=== PATIENT | male | born 1985 | race Caucasian/White ===

== ENCOUNTER 2018-09-05 13:59 | Inpatient (IN) ==
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
[2018-09-05] MEDS ORDERED: Piperacil/Tazo 4.5 GM Premix 4.5 GM/100 ML BAG IV.SIG STA (15:38)
[2018-09-05] MEDS ORDERED: Azithromycin Inj 500 MG in Sodium Chlor 0.9% Inj 250 ML IV.SIG STA (15:38)
[2018-09-05 15:39] LABS: Baso % (Auto) 0.3 % (0.0-2.0); Eos # (Auto) 0.2 th/mm3 (0.0-0.4); Eos % (Auto) 1.6 % (0.0-4.0); Lymph # (Auto) 1.1 th/mm3 (1.0-4.8); Lymph % (Auto) 7.3 % (9.0-44.0); Mean Corpuscular HGB Conc 33.2 % (32.0-36.0); Mean Corpuscular Hemoglobin 30.2 pg (27.0-34.0); Mean Corpuscular Volume 90.9 fL (80.0-100.0); Mean Platelet Volume 7.1 fL (7.0-11.0); Mono # (Auto) 1.4 th/mm3 (0.0-0.9); Mono % (Auto) 9.1 % (0.0-8.0); Neut # (Auto) 12.7 th/mm3 (1.8-7.7); Neut % (Auto) 81.7 % (16.0-70.0); Platelet Count 550 th/mm3 (150-450); Red Cell Distribution Width 15.2 % (11.6-17.2); White Blood Count 15.6 th/mm3 (4.0-11.0)
[2018-09-05 15:44] LABS: Activated Partial Thrombo Time 34.8 sec (23.4-31.7); INR 1.1 Ratio
[2018-09-05 15:49] LABS: Alanine Aminotransferase 29 U/L (12-78); Albumin 2.3 g/dL (3.4-5.0); Anion Gap 7 meq/L (5-15); Aspartate Aminotransferase 23 U/L (15-37); Blood Urea Nitrogen 11 mg/dL (7-18); Calcium 8.2 mg/dL (8.5-10.1); Chloride 97 meq/L (98-107); Glomerular Filtration Rate Greater Than 89 mL/min (>89); Glucose,Random 99 mg/dL (74-106); Potassium 4.2 meq/L (3.5-5.1); Sodium 133 meq/L (136-145)
[2018-09-05 15:53] LABS: Alkaline Phosphatase 94 U/L (45-117); Total Protein 7.5 g/dL (6.4-8.2)
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
[2018-09-05] MEDS ORDERED: Acetaminophen 325 MG Tablet PO ONE (18:19)
[2018-09-05] MEDS ORDERED: Vancomycin Inj 1,000 MG in Sodium Chlor 0.9% Inj 250 ML IV.SIG ONE (19:12)
[2018-09-05] MEDS ORDERED: Vancomycin Consult Pharmacy OTHER PRN (19:31)
[2018-09-05] MEDS ORDERED: Bisacodyl 10 MG Supp RECTAL PRN (19:31)
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
[2018-09-05] MEDS: Sod Chloride 0.9% Inj 1,000 ML IV.CONT SCH (21:02)
[2018-09-05] MEDS: Senna/Docusate Sodium 8.6/50 MG Tablet PO SCH (21:02)
[2018-09-05] MEDS: Budesonide-Formoterol 160/4.5 MCG 6 GM Inhaler INH SCH (21:03)
[2018-09-05] MEDS: guaiFENesin/Dextromethorphan 200 MG/20 MG 10 ML UDC PO PRN (23:35)
[2018-09-06] MEDS: Vancomycin Inj 1,250 MG in Sodium Chlor 0.9% Inj 250 ML IV.SIG SCH ×3 (01:52→19:10)
[2018-09-06] MEDS: Acetaminophen 325 MG Tablet PO PRN ×2 (01:52→18:14)
[2018-09-06] MEDS: Sod Chloride 0.9% Inj 1,000 ML IV.CONT SCH (07:18)
[2018-09-06 08:03] LABS: Hematocrit 27.5 % (39.0-51.0); Hemoglobin 9.5 gm/dL (13.0-17.0); Mean Corpuscular HGB Conc 34.5 % (32.0-36.0); Mean Corpuscular Hemoglobin 30.5 pg (27.0-34.0); Mean Corpuscular Volume 88.5 fL (80.0-100.0); Mean Platelet Volume 7.6 fL (7.0-11.0); Platelet Count 508 th/mm3 (150-450); Red Cell Distribution Width 14.7 % (11.6-17.2); White Blood Count 14.7 th/mm3 (4.0-11.0)
[2018-09-06 08:30] LABS: Eosinophils 1 % (0-4); Lymphocytes 5 % (9-44); Monocytes 10 % (0-8)
[2018-09-06 08:31] LABS: Platelet Morphology Normal (Normal); RBC Morphology Normal (Normal)
[2018-09-06 08:34] LABS: Alanine Aminotransferase 32 U/L (12-78); Albumin 2.1 g/dL (3.4-5.0); Anion Gap 6 meq/L (5-15); Aspartate Aminotransferase 23 U/L (15-37); Blood Urea Nitrogen 9 mg/dL (7-18); Calcium 8.1 mg/dL (8.5-10.1); Carbon Dioxide 29.7 meq/L (21.0-32.0); Chloride 99 meq/L (98-107); Glomerular Filtration Rate Greater Than 89 mL/min (>89); Glucose,Random 97 mg/dL (74-106); Potassium 4.2 meq/L (3.5-5.1); Sodium 135 meq/L (136-145)
[2018-09-06 08:39] LABS: Alkaline Phosphatase 107 U/L (45-117); Total Protein 7.2 g/dL (6.4-8.2)
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
[2018-09-06] MEDS: Senna/Docusate Sodium 8.6/50 MG Tablet PO SCH ×2 (09:43→21:14)
[2018-09-06] MEDS: guaiFENesin/Dextromethorphan 200 MG/20 MG 10 ML UDC PO PRN ×3 (09:51→21:16)
[2018-09-06] MEDS: Budesonide-Formoterol 160/4.5 MCG 6 GM Inhaler INH SCH ×2 (09:52→21:15)
[2018-09-06] MEDS: Dextrose 5%/NaCl 0.9% Inj 1,000 ML IV.CONT SCH (10:54)
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
--- NOTE | 2018-09-06 13:05 | ECG ---
Date Performed: 09/05/2018 Time Performed: 14:59:11 PTAGE: 33 years EKG: Sinus rhythm NORMAL ECG NO PREVIOUS TRACING DOCTOR: Jose Maria Post Interpretating Date/Time 09/06/2018 13:03:09
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
[2018-09-06 17:08] LABS: Hematocrit 25.5 % (39.0-51.0); Hemoglobin 8.8 gm/dL (13.0-17.0)
[2018-09-06] MEDS ORDERED: Pharmacy Ordered Lab Info OTHER ONE (17:45)
[2018-09-06 22:00] LABS: Hematocrit 23.1 % (39.0-51.0); Hemoglobin 7.9 gm/dL (13.0-17.0)
[2018-09-07] MEDS: Dextrose 5%/NaCl 0.9% Inj 1,000 ML IV.CONT SCH ×3 (00:30→21:27)
[2018-09-07 00:33] LABS: Hematocrit 24.9 % (39.0-51.0); Hemoglobin 8.7 gm/dL (13.0-17.0)
[2018-09-07] MEDS: Vancomycin Inj 1,250 MG in Sodium Chlor 0.9% Inj 250 ML IV.SIG SCH ×3 (01:53→17:45)
[2018-09-07] MEDS: guaiFENesin/Dextromethorphan 200 MG/20 MG 10 ML UDC PO PRN ×4 (01:54→21:58)
[2018-09-07 05:53] LABS: Baso # (Auto) 0.1 th/mm3 (0.0-0.2); Baso % (Auto) 0.6 % (0.0-2.0); Eos # (Auto) 0.4 th/mm3 (0.0-0.4); Eos % (Auto) 4.2 % (0.0-4.0); Hematocrit 28.3 % (39.0-51.0); Hemoglobin 9.6 gm/dL (13.0-17.0); Lymph % (Auto) 10.2 % (9.0-44.0); Mean Corpuscular HGB Conc 33.8 % (32.0-36.0); Mean Corpuscular Hemoglobin 30.5 pg (27.0-34.0); Mean Corpuscular Volume 90.4 fL (80.0-100.0); Mean Platelet Volume 6.8 fL (7.0-11.0); Mono % (Auto) 10.1 % (0.0-8.0); Neut # (Auto) 7.5 th/mm3 (1.8-7.7); Neut % (Auto) 74.9 % (16.0-70.0); Platelet Count 537 th/mm3 (150-450); Red Blood Count 3.13 mil/mm3 (4.50-5.90); Red Cell Distribution Width 14.9 % (11.6-17.2)
[2018-09-07 06:19] LABS: Anion Gap 6 meq/L (5-15); Blood Urea Nitrogen 10 mg/dL (7-18); Calcium 8.4 mg/dL (8.5-10.1); Carbon Dioxide 29.1 meq/L (21.0-32.0); Chloride 101 meq/L (98-107); Glomerular Filtration Rate Greater Than 89 mL/min (>89); Glucose,Random 104 mg/dL (74-106); Potassium 4.3 meq/L (3.5-5.1); Sodium 136 meq/L (136-145)
[2018-09-07] MEDS: Senna/Docusate Sodium 8.6/50 MG Tablet PO SCH ×2 (08:49→21:26)
[2018-09-07] MEDS: Budesonide-Formoterol 160/4.5 MCG 6 GM Inhaler INH SCH ×2 (08:50→21:27)
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
[2018-09-08] MEDS: Vancomycin Inj 1,250 MG in Sodium Chlor 0.9% Inj 250 ML IV.SIG SCH ×3 (01:55→17:13)
[2018-09-08] MEDS: guaiFENesin/Dextromethorphan 200 MG/20 MG 10 ML UDC PO PRN ×3 (02:11→20:20)
[2018-09-08] MEDS ORDERED: Lidocaine PF 1% Inj 5 ML Syringe OTHER ONE (08:20)
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
[2018-09-08] MEDS: Senna/Docusate Sodium 8.6/50 MG Tablet PO SCH ×2 (09:01→21:00)
[2018-09-08] MEDS: Budesonide-Formoterol 160/4.5 MCG 6 GM Inhaler INH SCH ×2 (09:01→21:00)
[2018-09-08] MEDS ORDERED: Sugammadex Inj 200 MG/2 ML Vial IV.PUSH ONE (09:19)
[2018-09-08] MEDS ORDERED: Pharmacy Ordered Lab Info OTHER ONE (09:45)
--- NOTE | 2018-09-08 09:48 | MP ---
cc: Papa Apodaca MD DATE OF OPERATION: 09/08/2018 PROCEDURE: Bronchoscopy. PREOPERATIVE DIAGNOSIS: Left lung infiltrate. POSTOPERATIVE DIAGNOSIS: Thick mucus plugs removed. DESCRIPTION OF PROCEDURE: Informed consent was obtained from the patient. Procedure and the complications including complication of anesthesia; pneumothorax requiring chest tube; bleeding complication; injury to the blood vessel, lungs, nose; arrhythmia; hypoxia; and need for ventilator was explained and he agreed for the procedure. Next, the patient was brought to the endoscopy suite, surrendered under general anesthesia, and an endotracheal tube was placed by anesthesiologist. Bronchoscope was done through the endotracheal tube. Main ji is sharp. Bronchoscope was advanced to the right lung. Right upper, middle, and lower lobe were visualized. Small amount of mucus was suctioned. No endobronchial lesion was seen. The bronchoscope was directed to the left lung. Left upper lingular and lower lobes were visualized. Thick mucus plugs were suctioned from the left lower lobe. After suctioning mucus plugs, all subsegments were patent. Bronchial washing from the left lung was sent for routine culture, AFB, fungal culture, and cytology. He tolerated the procedure well. Postprocedure chest x-ray ordered to rule out pneumothorax. MD SHADY Jose/britni , 08:47 AM , 08:52 AM
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
[2018-09-08] MEDS: Dextrose 5%/NaCl 0.9% Inj 1,000 ML IV.CONT SCH ×2 (11:45→21:01)
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
--- NOTE | 2018-09-08 13:33 | ECG ---
Date Performed: 09/08/2018 Time Performed: 05:29:54 PTAGE: 33 years EKG: Sinus rhythm . Normal ECG No significant change from prior electrocardiogram. PREVIOUS TRACING : 09/05/2018 14.59 DOCTOR: Neno Rodriguez Interpretating Date/Time 09/08/2018 13:32:00
[2018-09-08 19:15] LABS: TB1 Ag minus Nil Result -0.01 IU/mL
[2018-09-08] MEDS: Acetaminophen 325 MG Tablet PO PRN (20:20)
[2018-09-09] MEDS: guaiFENesin/Dextromethorphan 200 MG/20 MG 10 ML UDC PO PRN ×3 (00:47→22:51)
[2018-09-09] MEDS: Vancomycin Inj 1,250 MG in Sodium Chlor 0.9% Inj 250 ML IV.SIG SCH ×3 (02:23→19:42)
[2018-09-09 06:13] LABS: Hematocrit 27.4 % (39.0-51.0); Hemoglobin 9.4 gm/dL (13.0-17.0); Mean Corpuscular HGB Conc 34.3 % (32.0-36.0); Mean Corpuscular Hemoglobin 30.9 pg (27.0-34.0); Mean Corpuscular Volume 90.3 fL (80.0-100.0); Mean Platelet Volume 6.8 fL (7.0-11.0); Platelet Count 557 th/mm3 (150-450); Red Blood Count 3.04 mil/mm3 (4.50-5.90); Red Cell Distribution Width 14.9 % (11.6-17.2); White Blood Count 7.9 th/mm3 (4.0-11.0)
[2018-09-09 06:47] LABS: Anion Gap 5 meq/L (5-15); Blood Urea Nitrogen 9 mg/dL (7-18); Calcium 8.3 mg/dL (8.5-10.1); Carbon Dioxide 30.7 meq/L (21.0-32.0); Chloride 100 meq/L (98-107); Glomerular Filtration Rate Greater Than 89 mL/min (>89); Glucose,Random 116 mg/dL (74-106); Potassium 4.5 meq/L (3.5-5.1); Sodium 136 meq/L (136-145)
[2018-09-09] MEDS: Budesonide-Formoterol 160/4.5 MCG 6 GM Inhaler INH SCH ×2 (08:39→22:44)
[2018-09-09] MEDS: Senna/Docusate Sodium 8.6/50 MG Tablet PO SCH ×2 (08:39→22:43)
[2018-09-09] MEDS: Dextrose 5%/NaCl 0.9% Inj 1,000 ML IV.CONT SCH (08:40)
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
[2018-09-10] MEDS: Vancomycin Inj 1,250 MG in Sodium Chlor 0.9% Inj 250 ML IV.SIG SCH ×2 (02:12→10:34)
[2018-09-10] MEDS: guaiFENesin/Dextromethorphan 200 MG/20 MG 10 ML UDC PO PRN (04:24)
[2018-09-10] MEDS: Senna/Docusate Sodium 8.6/50 MG Tablet PO SCH ×2 (08:29→20:19)
[2018-09-10] MEDS: Budesonide-Formoterol 160/4.5 MCG 6 GM Inhaler INH SCH ×2 (08:31→23:46)
[2018-09-10] MEDS ORDERED: Pharmacy Ordered Lab Info OTHER ONE (09:45)
[2018-09-10 10:27] LABS: Hematocrit 29.9 % (39.0-51.0); Mean Corpuscular HGB Conc 33.6 % (32.0-36.0); Mean Corpuscular Hemoglobin 30.5 pg (27.0-34.0); Mean Corpuscular Volume 90.7 fL (80.0-100.0); Mean Platelet Volume 6.5 fL (7.0-11.0); Platelet Count 599 th/mm3 (150-450); Red Blood Count 3.29 mil/mm3 (4.50-5.90); White Blood Count 8.6 th/mm3 (4.0-11.0)
[2018-09-10 10:52] LABS: Anion Gap 5 meq/L (5-15); Blood Urea Nitrogen 9 mg/dL (7-18); Calcium 8.9 mg/dL (8.5-10.1); Carbon Dioxide 32.4 meq/L (21.0-32.0); Chloride 99 meq/L (98-107); Glomerular Filtration Rate Greater Than 89 mL/min (>89); Glucose,Random 96 mg/dL (74-106); Potassium 4.4 meq/L (3.5-5.1); Sodium 136 meq/L (136-145)
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
[2018-09-10] MEDS: Vancomycin Inj 1,500 MG in Sodium Chlor 0.9% Inj 500 ML IV.SIG SCH (17:53)
[2018-09-11] MEDS: Vancomycin Inj 1,500 MG in Sodium Chlor 0.9% Inj 500 ML IV.SIG SCH ×2 (05:39→10:58)
[2018-09-11] MEDS: Senna/Docusate Sodium 8.6/50 MG Tablet PO SCH (08:23)
[2018-09-11] MEDS: Budesonide-Formoterol 160/4.5 MCG 6 GM Inhaler INH SCH ×2 (10:57→21:24)
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
[2018-09-11] MEDS ORDERED: Vancomycin Consult Pharmacy OTHER PRN (18:36)
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
[2018-09-11] MEDS ORDERED: Vancomycin Inj 1,500 MG in Sodium Chlor 0.9% Inj 500 ML IV.SIG SCH (20:00)
[2018-09-11] MEDS: Linezolid 600 MG Tablet PO SCH (21:24)
[2018-09-12] MEDS ORDERED: Pharmacy Ordered Lab Info OTHER ONE ×2 (01:45→03:45)
[2018-09-12] MEDS: Senna/Docusate Sodium 8.6/50 MG Tablet PO SCH ×3 (07:07→21:59)
[2018-09-12] MEDS: Linezolid 600 MG Tablet PO SCH ×2 (09:58→21:57)
[2018-09-12] MEDS: Budesonide-Formoterol 160/4.5 MCG 6 GM Inhaler INH SCH ×2 (09:59→21:57)
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
[2018-09-12] MEDS: Vancomycin Inj 1,500 MG in Sodium Chlor 0.9% Inj 500 ML IV.SIG SCH (20:45)
[2018-09-13] MEDS: Budesonide-Formoterol 160/4.5 MCG 6 GM Inhaler INH SCH ×2 (09:35→21:13)
[2018-09-13] MEDS: Linezolid 600 MG Tablet PO SCH ×2 (09:35→21:12)
[2018-09-13] MEDS: Senna/Docusate Sodium 8.6/50 MG Tablet PO SCH ×2 (09:41→21:18)
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
[2018-09-14] MEDS: Linezolid 600 MG Tablet PO SCH ×2 (08:33→21:38)
[2018-09-14] MEDS: Senna/Docusate Sodium 8.6/50 MG Tablet PO SCH ×2 (08:33→21:38)
[2018-09-14] MEDS: Budesonide-Formoterol 160/4.5 MCG 6 GM Inhaler INH SCH ×2 (08:34→21:39)
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
[2018-09-15 07:08] LABS: Hematocrit 34.4 % (39.0-51.0); Hemoglobin 11.4 gm/dL (13.0-17.0); Mean Corpuscular HGB Conc 33.3 % (32.0-36.0); Mean Corpuscular Hemoglobin 29.8 pg (27.0-34.0); Mean Corpuscular Volume 89.7 fL (80.0-100.0); Mean Platelet Volume 6.7 fL (7.0-11.0); Platelet Count 555 th/mm3 (150-450); Red Blood Count 3.83 mil/mm3 (4.50-5.90); Red Cell Distribution Width 15.2 % (11.6-17.2); White Blood Count 11.6 th/mm3 (4.0-11.0)
[2018-09-15] MEDS: Senna/Docusate Sodium 8.6/50 MG Tablet PO SCH ×2 (09:34→21:14)
[2018-09-15] MEDS: Budesonide-Formoterol 160/4.5 MCG 6 GM Inhaler INH SCH ×2 (09:35→21:14)
[2018-09-15] MEDS: Linezolid 600 MG Tablet PO SCH ×2 (09:36→21:14)
--- NOTE | 2018-09-15 11:05 | P.PNADD ---
Addendum to Inpatient Note Additional information: Pt was eventually started on zyvox after phamacist OKed to start him p stopping flexeril w/o additional hold time Incresing hemoptysis -cont PO linezolid - monitor CBC BMP weekly Stop date will be determined by clinical and radiological resolution dw Dr Apodaca re hemoptysis, who recommends clinical monitoring at this point If hemoptysis wont improve over 1-2 days will get repeat CT wo c
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
[2018-09-16] MEDS: Senna/Docusate Sodium 8.6/50 MG Tablet PO SCH ×2 (09:54→21:49)
[2018-09-16] MEDS: Linezolid 600 MG Tablet PO SCH ×2 (09:54→21:49)
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
[2018-09-16] MEDS: Budesonide-Formoterol 160/4.5 MCG 6 GM Inhaler INH SCH ×2 (14:58→21:51)
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
[2018-09-17] MEDS: Senna/Docusate Sodium 8.6/50 MG Tablet PO SCH ×2 (09:09→21:57)
[2018-09-17] MEDS: Linezolid 600 MG Tablet PO SCH ×2 (09:09→21:58)
[2018-09-17] MEDS: Budesonide-Formoterol 160/4.5 MCG 6 GM Inhaler INH SCH ×2 (09:10→22:00)
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
[2018-09-18] MEDS: Linezolid 600 MG Tablet PO SCH ×2 (08:14→21:32)
[2018-09-18] MEDS: Senna/Docusate Sodium 8.6/50 MG Tablet PO SCH ×2 (08:14→21:33)
[2018-09-18] MEDS: Budesonide-Formoterol 160/4.5 MCG 6 GM Inhaler INH SCH ×2 (08:15→21:31)
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
[2018-09-18 13:29] LABS: Baso % (Auto) 0.6 % (0.0-2.0); Eos # (Auto) 0.5 th/mm3 (0.0-0.4); Eos % (Auto) 6.2 % (0.0-4.0); Hematocrit 32.9 % (39.0-51.0); Hemoglobin 10.9 gm/dL (13.0-17.0); Lymph # (Auto) 1.7 th/mm3 (1.0-4.8); Lymph % (Auto) 22.8 % (9.0-44.0); Mean Corpuscular HGB Conc 33.3 % (32.0-36.0); Mean Corpuscular Hemoglobin 30.2 pg (27.0-34.0); Mean Corpuscular Volume 90.7 fL (80.0-100.0); Mean Platelet Volume 6.7 fL (7.0-11.0); Mono # (Auto) 0.5 th/mm3 (0.0-0.9); Mono % (Auto) 6.3 % (0.0-8.0); Neut # (Auto) 4.7 th/mm3 (1.8-7.7); Neut % (Auto) 64.1 % (16.0-70.0); Platelet Count 420 th/mm3 (150-450); Red Blood Count 3.63 mil/mm3 (4.50-5.90); Red Cell Distribution Width 15.5 % (11.6-17.2); White Blood Count 7.3 th/mm3 (4.0-11.0)
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
[2018-09-19] MEDS: Budesonide-Formoterol 160/4.5 MCG 6 GM Inhaler INH SCH (09:32)
[2018-09-19] MEDS: Linezolid 600 MG Tablet PO SCH (09:32)
[2018-09-19] MEDS: Senna/Docusate Sodium 8.6/50 MG Tablet PO SCH (09:33)
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
== END 2018-09-19 13:45 ==
LOC: NEPC 13:59 → NEDA 19:35 → NEPFCDU 20:17 → N03 09-06 16:34 → HCIS 09-10 00:56 → N04 09-13 22:18
PROVIDERS: ADMIT Family Medicine; ATTEND Family Medicine
DX: A41.9 Sepsis, unspecified organism; T17.890A Other foreign object in other parts of respiratory tract causing asphyxiation, initial encounter; R06.89 Other abnormalities of breathing; L25.9 Unspecified contact dermatitis, unspecified cause; J15.212 Pneumonia due to Methicillin resistant Staphylococcus aureus; F17.210 Nicotine dependence, cigarettes, uncomplicated; X58.XXXA Exposure to other specified factors, initial encounter; W34.00XD Accidental discharge from unspecified firearms or gun, subsequent encounter; R04.2 Hemoptysis; S22.42XD Multiple fractures of ribs, left side, subsequent encounter for fracture with routine healing